=== PATIENT | male | born 1945 | race Caucasian/White ===

== ENCOUNTER 2022-07-27 03:23 | Inpatient (IN) | payer BC, MEDICARE ==
[~2022-07-27] VITALS: Ht 177.8 cm; Wt 72.3 kg
[2022-07-27] MEDS ORDERED: ONDANSETRON 4MG 2ML VIAL IV ONE (04:00)
[2022-07-27] MEDS: MORPHINE 4 MG/ML 1ML VIAL IV PRN ×2 (04:13→04:51)
[2022-07-27 04:48] LABS: BASO % 0.3 % (0.0-1.0); EOS % 0.5 % (0.0-3.0); HEMATOCRIT 37.3 % (42.0-52.0); HEMOGLOBIN 12.2 g/dl (13.5-17.5); LYMPH # 0.6 10^3/uL (1.5-5.0); LYMPH % 10.4 % (24.0-44.0); MEAN CORPUSCULAR HEMOGLOBIN 33.5 pg (27.0-33.0); MEAN CORPUSCULAR HGB CONC 32.7 g/dl (32.0-36.5); MEAN CORPUSCULAR VOLUME 102.5 fl (80.0-96.0); MONO # 0.5 10^3/uL (0.0-0.8); MONO % 8.1 % (2.0-8.0); NEUTROPHILS # 4.6 10^3/uL (1.5-8.5); PLATELET COUNT, AUTOMATED 170 10^3/uL (150-450); RED BLOOD COUNT 3.64 10^6/uL (4.30-6.10); WHITE BLOOD COUNT 5.8 10^3/uL (4.0-10.0)
[2022-07-27 04:58] LABS: INR 1.36
[2022-07-27 04:59] LABS: PARTIAL THROMBOPLASTIN TIME 35.1 SECONDS (24.8-34.2)
[2022-07-27 05:09] LABS: BLOOD UREA NITROGEN 31 MG/DL (9-23); CALCIUM LEVEL 8.7 MG/DL (8.3-10.6); CARBON DIOXIDE LEVEL 31 MMOL/L (20-31); CHLORIDE LEVEL 103 MMOL/L (98-107); CREATININE FOR GFR 0.93 MG/DL (0.70-1.30); GLOMERULAR FILTRATION RATE > 60.0 (>42); GLUCOSE, FASTING 269 MG/DL (74-106); POTASSIUM SERUM 4.1 MMOL/L (3.5-5.1); SODIUM LEVEL 140 MMOL/L (136-145)
[2022-07-27] MEDS ORDERED: FURO20TA2 PO (05:26)
[2022-07-27] MEDS ORDERED: BUPR150T12 PO (05:26)
[2022-07-27] MEDS ORDERED: ELIQ5TAB PO (05:26)
[2022-07-27] MEDS ORDERED: ASPI81TA26 PO (05:26)
[2022-07-27] MEDS ORDERED: LEXA1TAB PO (05:26)
[2022-07-27] MEDS ORDERED: CARV6.25 PO (05:26)
[2022-07-27] MEDS ORDERED: TAMS1CAP17 PO (05:26)
[2022-07-27] MEDS ORDERED: SPIR-10 PO (05:26)
[2022-07-27] MEDS ORDERED: METF500T13 PO (05:26)
[2022-07-27] MEDS ORDERED: MAGN400T2 PO (05:30)
[2022-07-27] MEDS ORDERED: ATOR1TAB21 PO (05:30)
[2022-07-27] MEDS ORDERED: VITA100054 PO (05:30)
[2022-07-27] MEDS ORDERED: THERTAB52 PO (05:30)
[2022-07-27] MEDS ORDERED: FERR1TAB8 PO (05:30)
[2022-07-27] MEDS ORDERED: VITA30005 SL (05:30)
[2022-07-27] MEDS ORDERED: AMIO200T49 PO (05:32)
[2022-07-27] MEDS ORDERED: HOME MED LIST COMPLETE! XX SCH (05:35)
[2022-07-27] MEDS ORDERED: MORPHINE 4 MG/ML 1ML VIAL IV ONE (06:30)
[2022-07-27] MEDS ORDERED: GLUCAGON INJ 1MG VIAL SC PRN (06:45)
[2022-07-27] MEDS ORDERED: DEXTROSE 50% 50ML SYRINGE IV PRN (06:45)
[2022-07-27] MEDS ORDERED: GLUCOSE 4GM CHEW TABLET PO PRN (06:45)
[2022-07-27] MEDS: INSULIN LISPRO (NovoLOG) PER UNIT SC SCH ×4 (07:30→20:53)
[2022-07-27] MEDS ORDERED: ASPIRIN 81MG CHEW TABLET PO ONE (08:00)
[2022-07-27 09:16] VITALS: BP 155/75
[2022-07-27] MEDS: NS 1,000 ML IV SCH ×2 (10:21→17:08)
[2022-07-27] MEDS: TAMSULOSIN 0.4 MG CAP PO SCH (10:22)
[2022-07-27] MEDS: CARVedilol 6.25 MG TAB PO SCH ×2 (10:22→20:34)
[2022-07-27] MEDS: AMIODARONE 200 MG TAB (PACERONE) PO SCH (10:22)
[2022-07-27] MEDS: ESCITALOPRAM OXALATE 10 MG TAB (LEXAPRO) PO SCH (10:23)
[2022-07-27] MEDS: FUROSEMIDE 20 MG TAB PO SCH (10:23)
[2022-07-27] MEDS: buPROPion **XL** TABLET 150MG (WELLBUTRIN XL) PO SCH (10:23)
[2022-07-27] MEDS: SPIRONOLACTONE 12.5MG PER 1/2 TABLET PO SCH (10:31)
[2022-07-27] MEDS: MORPHINE 2 MG/ML 1ML VIAL IV PRN ×3 (12:06→21:24)
[2022-07-27] MEDS ORDERED: ONDANSETRON 4MG 2ML VIAL IV PRN (14:00)
[2022-07-27] MEDS: HEPARIN SOD (PORCINE) 5000UNITS/ML 1ML VIAL/SYRINGE SC SCH ×2 (14:30→21:20)
[2022-07-27 18:18] VITALS: BP 125/57
[2022-07-27] MEDS ORDERED: PILL CUTTER 1 EACH XX PRN (19:00)
[2022-07-27] MEDS: ATORVASTATIN 20 MG TAB PO SCH (20:27)
[2022-07-27] MEDS: DAPAGLIFLOZIN PROPANEDIOL 10MG TABLET (FARXIGA) PO SCH (20:28)
[2022-07-27 20:48] VITALS: BP 167/74
[2022-07-27 21:31] VITALS: BP 146/61
[2022-07-28] MEDS: MORPHINE 2 MG/ML 1ML VIAL IV PRN ×5 (01:43→23:36)
[2022-07-28] MEDS: HEPARIN SOD (PORCINE) 5000UNITS/ML 1ML VIAL/SYRINGE SC SCH ×3 (05:18→21:22)
[2022-07-28 06:00] VITALS: BP 117/57
[2022-07-28 07:11] LABS: HEMATOCRIT 31.3 % (42.0-52.0); MEAN CORPUSCULAR HGB CONC 31.9 g/dl (32.0-36.5); MEAN CORPUSCULAR VOLUME 103.3 fl (80.0-96.0); PLATELET COUNT, AUTOMATED 130 10^3/uL (150-450); RED BLOOD COUNT 3.03 10^6/uL (4.30-6.10); WHITE BLOOD COUNT 4.6 10^3/uL (4.0-10.0)
[2022-07-28 07:35] LABS: ALBUMIN 3.1 G/DL (3.2-5.2); ALKALINE PHOSPHATASE 55 U/L (46-116); ALT/SGPT 20 U/L (7.0-40); AST/SGOT 19 U/L (<34); BILIRUBIN,TOTAL 0.8 MG/DL (0.3-1.2); BLOOD UREA NITROGEN 30 MG/DL (9-23); CALCIUM LEVEL 8.2 MG/DL (8.3-10.6); CARBON DIOXIDE LEVEL 27 MMOL/L (20-31); CHLORIDE LEVEL 104 MMOL/L (98-107); CREATININE FOR GFR 0.95 MG/DL (0.70-1.30); GLOMERULAR FILTRATION RATE > 60.0 (>42); GLUCOSE, FASTING 188 MG/DL (74-106); MAGNESIUM LEVEL 1.7 MG/DL (1.8-2.4); POTASSIUM SERUM 4.2 MMOL/L (3.5-5.1); SODIUM LEVEL 140 MMOL/L (136-145); TOTAL PROTEIN 5.3 G/DL (5.7-8.2)
[2022-07-28] MEDS: INSULIN LISPRO (NovoLOG) PER UNIT SC SCH ×4 (08:57→21:00)
[2022-07-28] MEDS: DAPAGLIFLOZIN PROPANEDIOL 10MG TABLET (FARXIGA) PO SCH (08:57)
[2022-07-28] MEDS: FUROSEMIDE 20 MG TAB PO SCH (08:57)
[2022-07-28] MEDS: SPIRONOLACTONE 12.5MG PER 1/2 TABLET PO SCH (08:57)
[2022-07-28] MEDS: AMIODARONE 200 MG TAB (PACERONE) PO SCH (08:58)
[2022-07-28] MEDS: ESCITALOPRAM OXALATE 10 MG TAB (LEXAPRO) PO SCH (08:58)
[2022-07-28] MEDS: buPROPion **XL** TABLET 150MG (WELLBUTRIN XL) PO SCH (08:58)
[2022-07-28] MEDS: CARVedilol 6.25 MG TAB PO SCH ×2 (08:58→21:22)
[2022-07-28] MEDS: TAMSULOSIN 0.4 MG CAP PO SCH (08:58)
[2022-07-28 10:00] VITALS: BP 117/55
[2022-07-28 14:00] VITALS: BP 137/54
[2022-07-28 21:00] VITALS: BP 137/55
[2022-07-28] MEDS: ATORVASTATIN 20 MG TAB PO SCH (21:19)
[2022-07-29] VITALS (9 sets, daily range): BP systolic 102–150; BP diastolic 46–58
[2022-07-29] MEDS: MORPHINE 2 MG/ML 1ML VIAL IV PRN ×4 (03:45→22:41)
[2022-07-29] MEDS: HEPARIN SOD (PORCINE) 5000UNITS/ML 1ML VIAL/SYRINGE SC SCH ×3 (05:23→21:08)
[2022-07-29 06:14] LABS: HEMATOCRIT 30.8 % (42.0-52.0); HEMOGLOBIN 9.9 g/dl (13.5-17.5); MEAN CORPUSCULAR HEMOGLOBIN 32.8 pg (27.0-33.0); MEAN CORPUSCULAR HGB CONC 32.1 g/dl (32.0-36.5); PLATELET COUNT, AUTOMATED 125 10^3/uL (150-450); RED BLOOD COUNT 3.02 10^6/uL (4.30-6.10); WHITE BLOOD COUNT 4.8 10^3/uL (4.0-10.0)
[2022-07-29 06:35] LABS: BLOOD UREA NITROGEN 29 MG/DL (9-23); CALCIUM LEVEL 7.9 MG/DL (8.3-10.6); CARBON DIOXIDE LEVEL 27 MMOL/L (20-31); CHLORIDE LEVEL 100 MMOL/L (98-107); CREATININE FOR GFR 0.98 MG/DL (0.70-1.30); GLOMERULAR FILTRATION RATE > 60.0 (>42); GLUCOSE, FASTING 151 MG/DL (74-106); POTASSIUM SERUM 4.1 MMOL/L (3.5-5.1); SODIUM LEVEL 138 MMOL/L (136-145)
[2022-07-29] MEDS: INSULIN LISPRO (NovoLOG) PER UNIT SC SCH ×4 (07:30→21:00)
[2022-07-29] MEDS: CARVedilol 6.25 MG TAB PO SCH ×2 (09:00→21:00)
[2022-07-29] MEDS ORDERED: LIDOCAINE 2% 100MG/5ML SDV (FOR ANES.) As Ordered ONE (09:27)
[2022-07-29] MEDS ORDERED: MIDAZOLAM INJ 2MG/2ML VIAL As Ordered ONE (09:27)
[2022-07-29] MEDS ORDERED: propofoL 200 MG/20 ML VIAL As Ordered ONE ×2 (09:27→12:07)
[2022-07-29] MEDS ORDERED: fentaNYL 100 MCG/2 ML INJECTION As Ordered ONE (09:27)
[2022-07-29] MEDS ORDERED: ceFAZolin 1GM VIAL As Ordered ONE (09:41)
[2022-07-29] MEDS ORDERED: BUPIVACAINE HCL 0.5% 30ML VIAL As Ordered ONE (09:46)
[2022-07-29] MEDS ORDERED: BUPIVACAINE/EPIN 0.5% 30ML VIAL ONE (09:46)
[2022-07-29] MEDS ORDERED: ceFAZolin 2 GM/D5W 50 ML IV BAG As Ordered ONE (09:46)
[2022-07-29] MEDS ORDERED: TRANEXAMIC ACID 100 MG/ML 10ML VIAL As Ordered ONE (09:46)
[2022-07-29] MEDS ORDERED: VASOPRESSIN INJ 20UNITS/ML 1ML VIAL As Ordered ONE (09:54)
[2022-07-29] MEDS ORDERED: ROCURONIUM BROMIDE 50MG/5ML VIAL As Ordered ONE (10:54)
[2022-07-29] MEDS ORDERED: BUPIVACAINE/EPIN 0.5% 30ML VIAL As Ordered ONE (11:01)
[2022-07-29] MEDS ORDERED: ACETAMINOPHEN 1000MG 100ML IV BAG As Ordered ONE (11:03)
[2022-07-29] MEDS ORDERED: LR 1,000 ML IV SCH (12:35)
[2022-07-29] MEDS ORDERED: MORPHINE 2 MG/ML 1ML VIAL IV PRN (12:35)
[2022-07-29] MEDS ORDERED: fentaNYL 100 MCG/2 ML INJECTION IV PRN (12:35)
[2022-07-29] MEDS ORDERED: ONDANSETRON 4MG 2ML VIAL IV PRN (12:35)
[2022-07-29] MEDS ORDERED: oxyCODONE 5MG TAB PO PRN (12:35)
[2022-07-29] MEDS: SPIRONOLACTONE 12.5MG PER 1/2 TABLET PO SCH (16:01)
[2022-07-29] MEDS: DAPAGLIFLOZIN PROPANEDIOL 10MG TABLET (FARXIGA) PO SCH (16:02)
[2022-07-29] MEDS: FUROSEMIDE 20 MG TAB PO SCH (16:02)
[2022-07-29] MEDS: TAMSULOSIN 0.4 MG CAP PO SCH (16:02)
[2022-07-29] MEDS: buPROPion **XL** TABLET 150MG (WELLBUTRIN XL) PO SCH (16:03)
[2022-07-29] MEDS: ESCITALOPRAM OXALATE 10 MG TAB (LEXAPRO) PO SCH (16:03)
[2022-07-29] MEDS: AMIODARONE 200 MG TAB (PACERONE) PO SCH (16:03)
[2022-07-29] MEDS: ceFAZolin SOD 1 GM in D5W MINI-BAG PLUS 50 ML IV SCH (18:01)
[2022-07-29] MEDS: ATORVASTATIN 20 MG TAB PO SCH (21:07)
[2022-07-29] MEDS: ACETAMINOPHEN TAB 650MG DOSE (2X325MG) PO PRN (21:09)
[2022-07-30] MEDS: ceFAZolin SOD 1 GM in D5W MINI-BAG PLUS 50 ML IV SCH ×2 (02:38→09:07)
[2022-07-30 03:00] VITALS: BP 139/56
[2022-07-30] MEDS ORDERED: IBUPROFEN 400MG TAB PO ONE (03:00)
[2022-07-30] MEDS: ACETAMINOPHEN TAB 650MG DOSE (2X325MG) PO PRN (06:11)
[2022-07-30 06:20] LABS: HEMOGLOBIN 10.1 g/dl (13.5-17.5); MEAN CORPUSCULAR HEMOGLOBIN 33.3 pg (27.0-33.0); MEAN CORPUSCULAR HGB CONC 32.6 g/dl (32.0-36.5); MEAN CORPUSCULAR VOLUME 102.3 fl (80.0-96.0); PLATELET COUNT, AUTOMATED 126 10^3/uL (150-450); RED BLOOD COUNT 3.03 10^6/uL (4.30-6.10); WHITE BLOOD COUNT 4.3 10^3/uL (4.0-10.0)
[2022-07-30] MEDS: HEPARIN SOD (PORCINE) 5000UNITS/ML 1ML VIAL/SYRINGE SC SCH (06:39)
[2022-07-30 06:50] LABS: BLOOD UREA NITROGEN 32 MG/DL (9-23); CALCIUM LEVEL 8.1 MG/DL (8.3-10.6); CARBON DIOXIDE LEVEL 30 MMOL/L (20-31); CHLORIDE LEVEL 100 MMOL/L (98-107); CREATININE FOR GFR 0.92 MG/DL (0.70-1.30); GLOMERULAR FILTRATION RATE > 60.0 (>42); GLUCOSE, FASTING 178 MG/DL (74-106); POTASSIUM SERUM 4.2 MMOL/L (3.5-5.1); SODIUM LEVEL 137 MMOL/L (136-145)
[2022-07-30] MEDS: CARVedilol 6.25 MG TAB PO SCH ×2 (09:00→21:00)
[2022-07-30] MEDS: INSULIN LISPRO (NovoLOG) PER UNIT SC SCH ×4 (09:05→21:24)
[2022-07-30] MEDS: DAPAGLIFLOZIN PROPANEDIOL 10MG TABLET (FARXIGA) PO SCH (09:06)
[2022-07-30] MEDS: FUROSEMIDE 20 MG TAB PO SCH (09:06)
[2022-07-30] MEDS: AMIODARONE 200 MG TAB (PACERONE) PO SCH (09:06)
[2022-07-30] MEDS: ESCITALOPRAM OXALATE 10 MG TAB (LEXAPRO) PO SCH (09:06)
[2022-07-30] MEDS: TAMSULOSIN 0.4 MG CAP PO SCH (09:07)
[2022-07-30] MEDS: buPROPion **XL** TABLET 150MG (WELLBUTRIN XL) PO SCH (09:07)
[2022-07-30] MEDS: SPIRONOLACTONE 12.5MG PER 1/2 TABLET PO SCH (09:17)
[2022-07-30] MEDS: MORPHINE 2 MG/ML 1ML VIAL IV PRN (10:01)
[2022-07-30] MEDS ORDERED: CYCLOBENZAPRINE 10MG TABLET PO PRN (10:45)
[2022-07-30 14:00] VITALS: BP 103/85
[2022-07-30] MEDS: FERROUS SULFATE 325MG TAB PO SCH (14:56)
[2022-07-30] MEDS: oxyCODONE 5MG TAB PO PRN ×2 (14:56→21:25)
[2022-07-30] MEDS: LIDOCAINE 5% (LIDODERM) PATCH TD SCH (15:00)
[2022-07-30] MEDS: DICLOFENAC EPOLAMINE 1.3% PATCH TOP SCH ×2 (15:01→21:26)
[2022-07-30 15:08] LABS: IRON (FE) 10 UG/DL (65-175); PERCENT SATURATION 4.4 % (19.7-50.0); TOTAL IRON BINDING CAPACITY 225 UG/DL (250-425)
[2022-07-30 15:10] LABS: FERRITIN 102.4 NG/ML (10.5-307.3); FOLATE 21.37 NG/ML (>5.4)
[2022-07-30 15:12] LABS: VITAMIN B12 LEVEL > 2000 PG/ML (211-911)
[2022-07-30] MEDS ORDERED: FERRIC CARBOXYMALTOSE INJ 750 MG, VIAL MATE ADAPTER 1 EACH in NS 250 ML IV ONE (18:00)
[2022-07-30] MEDS: ACETAMINOPHEN 500 MG TAB PO SCH (18:53)
[2022-07-30] MEDS: APIXABAN 5 MG TAB (ELIQUIS) PO SCH (21:24)
[2022-07-30] MEDS: ATORVASTATIN 20 MG TAB PO SCH (21:25)
[2022-07-30 22:00] VITALS: BP_SYST 138; BP_DIAS 56; BP_DIAS 57
[2022-07-31] MEDS: ACETAMINOPHEN 500 MG TAB PO SCH ×5 (01:25→23:26)
[2022-07-31 05:58] LABS: HEMATOCRIT 27.5 % (42.0-52.0); HEMOGLOBIN 9.1 g/dl (13.5-17.5); MEAN CORPUSCULAR HEMOGLOBIN 33.5 pg (27.0-33.0); MEAN CORPUSCULAR HGB CONC 33.1 g/dl (32.0-36.5); MEAN CORPUSCULAR VOLUME 101.1 fl (80.0-96.0); PLATELET COUNT, AUTOMATED 135 10^3/uL (150-450); RED BLOOD COUNT 2.72 10^6/uL (4.30-6.10)
[2022-07-31 06:00] VITALS: BP 143/54
[2022-07-31 06:14] LABS: BLOOD UREA NITROGEN 29 MG/DL (9-23); CALCIUM LEVEL 8.1 MG/DL (8.3-10.6); CARBON DIOXIDE LEVEL 31 MMOL/L (20-31); CHLORIDE LEVEL 103 MMOL/L (98-107); CREATININE FOR GFR 0.86 MG/DL (0.70-1.30); GLOMERULAR FILTRATION RATE > 60.0 (>42); GLUCOSE, FASTING 179 MG/DL (74-106); POTASSIUM SERUM 3.6 MMOL/L (3.5-5.1); SODIUM LEVEL 140 MMOL/L (136-145)
[2022-07-31] MEDS: INSULIN LISPRO (NovoLOG) PER UNIT SC SCH ×4 (08:01→20:17)
[2022-07-31 08:10] VITALS: BP 163/57
[2022-07-31] MEDS: oxyCODONE 5MG TAB PO PRN ×2 (08:57→13:19)
[2022-07-31] MEDS: CARVedilol 6.25 MG TAB PO SCH ×2 (09:00→20:24)
[2022-07-31] MEDS: LIDOCAINE 5% (LIDODERM) PATCH TD SCH (10:23)
[2022-07-31] MEDS: DICLOFENAC EPOLAMINE 1.3% PATCH TOP SCH ×2 (10:23→20:23)
[2022-07-31] MEDS: SPIRONOLACTONE 12.5MG PER 1/2 TABLET PO SCH (10:24)
[2022-07-31] MEDS: FUROSEMIDE 20 MG TAB PO SCH (10:24)
[2022-07-31] MEDS: buPROPion **XL** TABLET 150MG (WELLBUTRIN XL) PO SCH (10:24)
[2022-07-31] MEDS: DAPAGLIFLOZIN PROPANEDIOL 10MG TABLET (FARXIGA) PO SCH (10:24)
[2022-07-31] MEDS: TAMSULOSIN 0.4 MG CAP PO SCH (10:24)
[2022-07-31] MEDS: FERROUS SULFATE 325MG TAB PO SCH (10:24)
[2022-07-31] MEDS: ESCITALOPRAM OXALATE 10 MG TAB (LEXAPRO) PO SCH (10:24)
[2022-07-31] MEDS: ASPIRIN 81MG ENTERIC TABLET PO SCH (10:24)
[2022-07-31] MEDS: APIXABAN 5 MG TAB (ELIQUIS) PO SCH ×2 (10:25→20:23)
[2022-07-31 11:00] VITALS: BP 164/62
[2022-07-31] MEDS: AMIODARONE 200 MG TAB (PACERONE) PO SCH (12:04)
[2022-07-31] MEDS: METAMUCIL (PSYLLIUM) PACKET PO SCH (17:42)
[2022-07-31] MEDS: MIRALAX *UNIT DOSE* 17GM PACKET PO SCH (17:42)
[2022-07-31] MEDS: ATORVASTATIN 20 MG TAB PO SCH (20:23)
[2022-08-01] MEDS: ACETAMINOPHEN 500 MG TAB PO SCH ×3 (05:26→18:12)
[2022-08-01 05:44] VITALS: BP 147/60
[2022-08-01 06:32] LABS: HEMATOCRIT 27.5 % (42.0-52.0); MEAN CORPUSCULAR HEMOGLOBIN 33.2 pg (27.0-33.0); MEAN CORPUSCULAR HGB CONC 32.7 g/dl (32.0-36.5); MEAN CORPUSCULAR VOLUME 101.5 fl (80.0-96.0); PLATELET COUNT, AUTOMATED 147 10^3/uL (150-450); RED BLOOD COUNT 2.71 10^6/uL (4.30-6.10)
[2022-08-01 06:56] LABS: BLOOD UREA NITROGEN 24 MG/DL (9-23); CALCIUM LEVEL 8.2 MG/DL (8.3-10.6); CARBON DIOXIDE LEVEL 32 MMOL/L (20-31); CHLORIDE LEVEL 102 MMOL/L (98-107); CREATININE FOR GFR 0.71 MG/DL (0.70-1.30); GLOMERULAR FILTRATION RATE > 60.0 (>42); GLUCOSE, FASTING 182 MG/DL (74-106); POTASSIUM SERUM 3.2 MMOL/L (3.5-5.1); SODIUM LEVEL 141 MMOL/L (136-145)
[2022-08-01] MEDS: LIDOCAINE 5% (LIDODERM) PATCH TD SCH ×2 (09:46→21:03)
[2022-08-01] MEDS: METAMUCIL (PSYLLIUM) PACKET PO SCH (09:46)
[2022-08-01] MEDS: DICLOFENAC EPOLAMINE 1.3% PATCH TOP SCH ×2 (09:46→21:03)
[2022-08-01] MEDS: MIRALAX *UNIT DOSE* 17GM PACKET PO SCH (09:46)
[2022-08-01] MEDS: oxyCODONE 5MG TAB PO PRN ×3 (09:46→21:12)
[2022-08-01] MEDS: ASPIRIN 81MG ENTERIC TABLET PO SCH (09:47)
[2022-08-01] MEDS: buPROPion **XL** TABLET 150MG (WELLBUTRIN XL) PO SCH (09:47)
[2022-08-01] MEDS: DAPAGLIFLOZIN PROPANEDIOL 10MG TABLET (FARXIGA) PO SCH (09:47)
[2022-08-01] MEDS: SPIRONOLACTONE 12.5MG PER 1/2 TABLET PO SCH (09:47)
[2022-08-01] MEDS: FUROSEMIDE 20 MG TAB PO SCH (09:48)
[2022-08-01] MEDS: ESCITALOPRAM OXALATE 10 MG TAB (LEXAPRO) PO SCH (09:48)
[2022-08-01] MEDS: APIXABAN 5 MG TAB (ELIQUIS) PO SCH ×2 (09:48→21:01)
[2022-08-01] MEDS: FERROUS SULFATE 325MG TAB PO SCH (09:48)
[2022-08-01] MEDS: AMIODARONE 200 MG TAB (PACERONE) PO SCH (09:48)
[2022-08-01] MEDS: TAMSULOSIN 0.4 MG CAP PO SCH (09:48)
[2022-08-01] MEDS: INSULIN LISPRO (NovoLOG) PER UNIT SC SCH ×4 (09:49→21:00)
[2022-08-01] MEDS: CARVedilol 6.25 MG TAB PO SCH ×2 (09:54→21:00)
[2022-08-01] MEDS: POTASSIUM CHLORIDE 10MEQ SR TABLET PO SCH ×2 (11:33→21:01)
[2022-08-01] MEDS: ATORVASTATIN 20 MG TAB PO SCH (21:02)
[2022-08-02] MEDS: ACETAMINOPHEN 500 MG TAB PO SCH ×5 (00:08→23:07)
[2022-08-02 06:00] VITALS: BP 124/58
[2022-08-02 07:19] LABS: HEMATOCRIT 28.8 % (42.0-52.0); HEMOGLOBIN 9.3 g/dl (13.5-17.5); MEAN CORPUSCULAR HGB CONC 32.3 g/dl (32.0-36.5); MEAN CORPUSCULAR VOLUME 102.1 fl (80.0-96.0); PLATELET COUNT, AUTOMATED 188 10^3/uL (150-450); RED BLOOD COUNT 2.82 10^6/uL (4.30-6.10); WHITE BLOOD COUNT 3.5 10^3/uL (4.0-10.0)
[2022-08-02 07:47] LABS: BLOOD UREA NITROGEN 23 MG/DL (9-23); CALCIUM LEVEL 8.1 MG/DL (8.3-10.6); CARBON DIOXIDE LEVEL 33 MMOL/L (20-31); CHLORIDE LEVEL 106 MMOL/L (98-107); CREATININE FOR GFR 0.66 MG/DL (0.70-1.30); GLOMERULAR FILTRATION RATE > 60.0 (>42); GLUCOSE, FASTING 198 MG/DL (74-106); POTASSIUM SERUM 4.2 MMOL/L (3.5-5.1); SODIUM LEVEL 140 MMOL/L (136-145)
[2022-08-02] MEDS: INSULIN LISPRO (NovoLOG) PER UNIT SC SCH ×5 (08:54→20:26)
[2022-08-02] MEDS: AMIODARONE 200 MG TAB (PACERONE) PO SCH (08:56)
[2022-08-02] MEDS: FERROUS SULFATE 325MG TAB PO SCH (08:56)
[2022-08-02] MEDS: APIXABAN 5 MG TAB (ELIQUIS) PO SCH ×2 (08:56→20:19)
[2022-08-02] MEDS: CARVedilol 6.25 MG TAB PO SCH ×2 (08:57→20:19)
[2022-08-02] MEDS: POTASSIUM CHLORIDE 10MEQ SR TABLET PO SCH ×2 (08:57→20:19)
[2022-08-02] MEDS: METAMUCIL (PSYLLIUM) PACKET PO SCH (08:58)
[2022-08-02] MEDS: buPROPion **XL** TABLET 150MG (WELLBUTRIN XL) PO SCH (08:58)
[2022-08-02] MEDS: MIRALAX *UNIT DOSE* 17GM PACKET PO SCH (08:58)
[2022-08-02] MEDS: ASPIRIN 81MG ENTERIC TABLET PO SCH (08:59)
[2022-08-02] MEDS: ESCITALOPRAM OXALATE 10 MG TAB (LEXAPRO) PO SCH (08:59)
[2022-08-02] MEDS: DICLOFENAC EPOLAMINE 1.3% PATCH TOP SCH ×2 (08:59→20:20)
[2022-08-02] MEDS: TAMSULOSIN 0.4 MG CAP PO SCH (08:59)
[2022-08-02] MEDS: FUROSEMIDE 20 MG TAB PO SCH (08:59)
[2022-08-02] MEDS: SPIRONOLACTONE 12.5MG PER 1/2 TABLET PO SCH (09:13)
[2022-08-02] MEDS: DAPAGLIFLOZIN PROPANEDIOL 10MG TABLET (FARXIGA) PO SCH (12:39)
[2022-08-02] MEDS: oxyCODONE 5MG TAB PO PRN ×2 (13:56→20:18)
[2022-08-02] MEDS: ATORVASTATIN 20 MG TAB PO SCH (20:19)
[2022-08-02] MEDS: MORPHINE 4 MG/ML 1ML VIAL IV PRN (23:40)
[2022-08-03] MEDS: MORPHINE 4 MG/ML 1ML VIAL IV PRN ×2 (03:54→08:49)
[2022-08-03] MEDS: ACETAMINOPHEN 500 MG TAB PO SCH ×4 (05:31→23:28)
[2022-08-03 06:00] VITALS: BP_SYST 142; BP_SYST 162; BP_DIAS 68; BP_DIAS 70
[2022-08-03 06:06] LABS: HEMATOCRIT 28.2 % (42.0-52.0); HEMOGLOBIN 9.1 g/dl (13.5-17.5); MEAN CORPUSCULAR HEMOGLOBIN 33.2 pg (27.0-33.0); MEAN CORPUSCULAR HGB CONC 32.3 g/dl (32.0-36.5); MEAN CORPUSCULAR VOLUME 102.9 fl (80.0-96.0); PLATELET COUNT, AUTOMATED 199 10^3/uL (150-450); RED BLOOD COUNT 2.74 10^6/uL (4.30-6.10)
[2022-08-03] MEDS: oxyCODONE 5MG TAB PO PRN ×3 (06:13→21:32)
[2022-08-03 06:28] LABS: BLOOD UREA NITROGEN 23 MG/DL (9-23); CARBON DIOXIDE LEVEL 30 MMOL/L (20-31); CHLORIDE LEVEL 101 MMOL/L (98-107); CREATININE FOR GFR 0.75 MG/DL (0.70-1.30); GLOMERULAR FILTRATION RATE > 60.0 (>42); GLUCOSE, FASTING 218 MG/DL (74-106); POTASSIUM SERUM 4.8 MMOL/L (3.5-5.1); SODIUM LEVEL 137 MMOL/L (136-145)
[2022-08-03] MEDS: FUROSEMIDE 20 MG TAB PO SCH (08:30)
[2022-08-03] MEDS: ASPIRIN 81MG ENTERIC TABLET PO SCH (08:30)
[2022-08-03] MEDS: TAMSULOSIN 0.4 MG CAP PO SCH (08:31)
[2022-08-03] MEDS: POTASSIUM CHLORIDE 10MEQ SR TABLET PO SCH (08:31)
[2022-08-03] MEDS: SPIRONOLACTONE 12.5MG PER 1/2 TABLET PO SCH (08:31)
[2022-08-03] MEDS: CARVedilol 6.25 MG TAB PO SCH ×2 (08:32→21:19)
[2022-08-03] MEDS: FERROUS SULFATE 325MG TAB PO SCH (08:32)
[2022-08-03] MEDS: APIXABAN 5 MG TAB (ELIQUIS) PO SCH ×2 (08:33→21:18)
[2022-08-03] MEDS: buPROPion **XL** TABLET 150MG (WELLBUTRIN XL) PO SCH (08:33)
[2022-08-03] MEDS: ESCITALOPRAM OXALATE 10 MG TAB (LEXAPRO) PO SCH (08:33)
[2022-08-03] MEDS: DAPAGLIFLOZIN PROPANEDIOL 10MG TABLET (FARXIGA) PO SCH (08:33)
[2022-08-03] MEDS: AMIODARONE 200 MG TAB (PACERONE) PO SCH (08:33)
[2022-08-03] MEDS: INSULIN LISPRO (NovoLOG) PER UNIT SC SCH ×4 (08:34→21:00)
[2022-08-03] MEDS: METAMUCIL (PSYLLIUM) PACKET PO SCH (08:35)
[2022-08-03] MEDS: LIDOCAINE 5% (LIDODERM) PATCH TD SCH (08:35)
[2022-08-03] MEDS: DICLOFENAC EPOLAMINE 1.3% PATCH TOP SCH ×2 (08:35→21:21)
[2022-08-03] MEDS: MIRALAX *UNIT DOSE* 17GM PACKET PO SCH (08:35)
[2022-08-03] MEDS: ATORVASTATIN 20 MG TAB PO SCH (21:18)
[2022-08-04] MEDS: ACETAMINOPHEN 500 MG TAB PO SCH ×3 (05:44→18:11)
[2022-08-04 06:00] VITALS: BP 131/58
[2022-08-04 06:03] LABS: HEMATOCRIT 30.7 % (42.0-52.0); HEMOGLOBIN 9.8 g/dl (13.5-17.5); MEAN CORPUSCULAR HEMOGLOBIN 32.9 pg (27.0-33.0); MEAN CORPUSCULAR HGB CONC 31.9 g/dl (32.0-36.5); PLATELET COUNT, AUTOMATED 224 10^3/uL (150-450); RED BLOOD COUNT 2.98 10^6/uL (4.30-6.10); WHITE BLOOD COUNT 3.8 10^3/uL (4.0-10.0)
[2022-08-04 06:31] LABS: BLOOD UREA NITROGEN 24 MG/DL (9-23); CALCIUM LEVEL 7.6 MG/DL (8.3-10.6); CARBON DIOXIDE LEVEL 31 MMOL/L (20-31); CHLORIDE LEVEL 101 MMOL/L (98-107); CREATININE FOR GFR 0.74 MG/DL (0.70-1.30); GLOMERULAR FILTRATION RATE > 60.0 (>42); GLUCOSE, FASTING 195 MG/DL (74-106); POTASSIUM SERUM 4.9 MMOL/L (3.5-5.1); SODIUM LEVEL 137 MMOL/L (136-145)
[2022-08-04] MEDS: ASPIRIN 81MG ENTERIC TABLET PO SCH (08:30)
[2022-08-04] MEDS: AMIODARONE 200 MG TAB (PACERONE) PO SCH (08:31)
[2022-08-04] MEDS: TAMSULOSIN 0.4 MG CAP PO SCH (08:31)
[2022-08-04] MEDS: FUROSEMIDE 20 MG TAB PO SCH (08:31)
[2022-08-04] MEDS: DAPAGLIFLOZIN PROPANEDIOL 10MG TABLET (FARXIGA) PO SCH (08:31)
[2022-08-04] MEDS: FERROUS SULFATE 325MG TAB PO SCH (08:32)
[2022-08-04] MEDS: ESCITALOPRAM OXALATE 10 MG TAB (LEXAPRO) PO SCH (08:32)
[2022-08-04] MEDS: CARVedilol 6.25 MG TAB PO SCH ×2 (08:34→20:15)
[2022-08-04] MEDS: buPROPion **XL** TABLET 150MG (WELLBUTRIN XL) PO SCH (08:34)
[2022-08-04] MEDS: APIXABAN 5 MG TAB (ELIQUIS) PO SCH ×2 (08:34→20:14)
[2022-08-04] MEDS: INSULIN LISPRO (NovoLOG) PER UNIT SC SCH ×4 (08:35→21:00)
[2022-08-04] MEDS: LIDOCAINE 5% (LIDODERM) PATCH TD SCH (08:35)
[2022-08-04] MEDS: DICLOFENAC EPOLAMINE 1.3% PATCH TOP SCH ×2 (08:36→20:17)
[2022-08-04] MEDS: SPIRONOLACTONE 12.5MG PER 1/2 TABLET PO SCH (08:42)
[2022-08-04] MEDS: oxyCODONE 5MG TAB PO PRN ×2 (08:43→20:16)
[2022-08-04] MEDS: METAMUCIL (PSYLLIUM) PACKET PO SCH (08:44)
[2022-08-04] MEDS: MIRALAX *UNIT DOSE* 17GM PACKET PO SCH (08:44)
[2022-08-04] MEDS ORDERED: MIRA1POW3 PO (16:01)
[2022-08-04] MEDS ORDERED: DICL1PAT6 TOP (16:01)
[2022-08-04] MEDS ORDERED: FARX1TAB3 PO (16:01)
[2022-08-04] MEDS ORDERED: OXYC-517 PO (16:01)
[2022-08-04] MEDS ORDERED: LIDO5TD TD (16:01)
[2022-08-04 20:15] VITALS: BP 144/96
[2022-08-04] MEDS: ATORVASTATIN 20 MG TAB PO SCH (20:15)
[2022-08-05] MEDS: ACETAMINOPHEN 500 MG TAB PO SCH ×3 (00:39→12:32)
[2022-08-05 06:56] VITALS: BP 146/80
[2022-08-05 08:00] VITALS: BP 148/76
[2022-08-05] MEDS: MIRALAX *UNIT DOSE* 17GM PACKET PO SCH ×2 (09:00→09:07)
[2022-08-05] MEDS: METAMUCIL (PSYLLIUM) PACKET PO SCH ×2 (09:00→09:07)
[2022-08-05] MEDS: CARVedilol 6.25 MG TAB PO SCH (09:00)
[2022-08-05] MEDS: INSULIN LISPRO (NovoLOG) PER UNIT SC SCH ×2 (09:07→12:31)
[2022-08-05] MEDS: LIDOCAINE 5% (LIDODERM) PATCH TD SCH (09:07)
[2022-08-05] MEDS: DICLOFENAC EPOLAMINE 1.3% PATCH TOP SCH (09:08)
[2022-08-05] MEDS: buPROPion **XL** TABLET 150MG (WELLBUTRIN XL) PO SCH (09:08)
[2022-08-05] MEDS: ASPIRIN 81MG ENTERIC TABLET PO SCH (09:08)
[2022-08-05] MEDS: FERROUS SULFATE 325MG TAB PO SCH (09:09)
[2022-08-05] MEDS: TAMSULOSIN 0.4 MG CAP PO SCH (09:09)
[2022-08-05] MEDS: AMIODARONE 200 MG TAB (PACERONE) PO SCH (09:09)
[2022-08-05] MEDS: APIXABAN 5 MG TAB (ELIQUIS) PO SCH (09:09)
[2022-08-05] MEDS: ESCITALOPRAM OXALATE 10 MG TAB (LEXAPRO) PO SCH (09:09)
[2022-08-05] MEDS: DAPAGLIFLOZIN PROPANEDIOL 10MG TABLET (FARXIGA) PO SCH (09:09)
[2022-08-05] MEDS: FUROSEMIDE 20 MG TAB PO SCH (09:09)
[2022-08-05] MEDS: SPIRONOLACTONE 12.5MG PER 1/2 TABLET PO SCH (09:17)
[2022-08-05 12:00] VITALS: BP 146/64
[2022-08-05 12:34] VITALS: BP 146/64
[2022-08-05] MEDS: oxyCODONE 5MG TAB PO PRN (12:34)
== END 2022-08-05 13:05 | DRG 308 ==
LOC: M ED 03:23 → M ED INP 05:50 → ENRESERV 08:14 → M MSPAV 09:20
PROVIDERS: ADMIT Family Medicine; ATTEND Internal Medicine Nephrology
PROC: 0QS606Z Reposition Right Upper Femur with Intramedullary Internal Fixation Device, Open Approach (ICD-10-PCS; principal; 2022-07-29 11:30)
DX: S72.141A Displaced intertrochanteric fracture of right femur, initial encounter for closed fracture (principal); I47.20 Ventricular tachycardia, unspecified; I11.0 Hypertensive heart disease with heart failure; I25.5 Ischemic cardiomyopathy; I50.22 Chronic systolic (congestive) heart failure; F03.90 Unspecified dementia, unspecified severity, without behavioral disturbance, psychotic disturbance, mood disturbance, and anxiety; I25.10 Atherosclerotic heart disease of native coronary artery without angina pectoris; I69.322 Dysarthria following cerebral infarction; F32.A Depression, unspecified; I48.20 Chronic atrial fibrillation, unspecified; E11.9 Type 2 diabetes mellitus without complications; F41.9 Anxiety disorder, unspecified; W18.09XA Striking against other object with subsequent fall, initial encounter; Y92.59 Other trade areas as the place of occurrence of the external cause; D62 Acute posthemorrhagic anemia; Y93.89 Activity, other specified; Y99.8 Other external cause status; E87.6 Hypokalemia; I25.2 Old myocardial infarction; I69.392 Facial weakness following cerebral infarction; Z98.84 Bariatric surgery status; Z95.1 Presence of aortocoronary bypass graft; Z95.828 Presence of other vascular implants and grafts; Z79.01 Long term (current) use of anticoagulants; Z79.82 Long term (current) use of aspirin; Z79.899 Other long term (current) drug therapy; Z88.2 Allergy status to sulfonamides; Z95.810 Presence of automatic (implantable) cardiac defibrillator

== ENCOUNTER 2022-08-09 00:28 | Inpatient (IN) | payer BC, MEDICARE ==
[~2022-08-09] VITALS: Ht 177.8 cm; Wt 71.0 kg
[~2022-08-09 00:28] MED LIST: AMIO200T49 PO; ASPI81TA26 PO; ATOR1TAB21 PO; BUPR150T12 PO; CARV6.25 PO; DICL1PAT6 TOP; ELIQ5TAB PO; FARX1TAB3 PO; FERR1TAB8 PO; FURO20TA2 PO; LEXA1TAB PO; LIDO5TD TD; MAGN400T2 PO; METF500T13 PO; MIRA1POW3 PO; OXYC-517 PO; SPIR-10 PO; TAMS1CAP17 PO; THERTAB52 PO; VITA100054 PO; VITA30005 SL
[2022-08-09 04:00] VITALS: BP 132/63
[2022-08-09] MEDS ORDERED: DEXTROSE 50% 50ML SYRINGE IV PRN (04:10)
[2022-08-09] MEDS ORDERED: GLUCAGON INJ 1MG VIAL SC PRN (04:10)
[2022-08-09] MEDS ORDERED: SODIUM CHLORIDE 0.9% 1000ML IV SCH (04:10)
[2022-08-09] MEDS ORDERED: GLUCOSE 4GM CHEW TABLET PO PRN (04:10)
[2022-08-09 04:41] LABS: HEMATOCRIT 32.9 % (42.0-52.0); HEMOGLOBIN 10.5 g/dl (13.5-17.5); MEAN CORPUSCULAR HEMOGLOBIN 33.3 pg (27.0-33.0); MEAN CORPUSCULAR HGB CONC 31.9 g/dl (32.0-36.5); MEAN CORPUSCULAR VOLUME 104.4 fl (80.0-96.0); PLATELET COUNT, AUTOMATED 314 10^3/uL (150-450); RED BLOOD COUNT 3.15 10^6/uL (4.30-6.10); WHITE BLOOD COUNT 18.4 10^3/uL (4.0-10.0)
[2022-08-09] MEDS: HYDROMORPHONE HCL 0.5 MG/ 0.5 ML SYRINGE IV PRN ×2 (05:02→09:17)
[2022-08-09 05:11] LABS: BLOOD UREA NITROGEN 35 MG/DL (9-23); CARBON DIOXIDE LEVEL 31 MMOL/L (20-31); CHLORIDE LEVEL 98 MMOL/L (98-107); CREATININE FOR GFR 0.95 MG/DL (0.70-1.30); GLOMERULAR FILTRATION RATE > 60.0 (>42); GLUCOSE, FASTING 276 MG/DL (74-106); POTASSIUM SERUM 4.8 MMOL/L (3.5-5.1); SODIUM LEVEL 133 MMOL/L (136-145)
[2022-08-09] MEDS: cefTRIAXone SOD 1 GM in D5W MINI-BAG PLUS 50 ML IV SCH (05:24)
[2022-08-09] MEDS: INSULIN LISPRO (NovoLOG) PER UNIT SC SCH ×3 (06:05→18:08)
[2022-08-09 07:00] VITALS: BP 127/57
[2022-08-09 08:00] VITALS: BP 136/63
[2022-08-09] MEDS ORDERED: NS 1,000 ML IV SCH (08:00)
[2022-08-09 12:30] VITALS: BP 127/58
[2022-08-09] MEDS: PERCOCET 5MG/325MG TAB PO PRN ×2 (15:20→19:43)
[2022-08-09 16:00] VITALS: BP 130/57
[2022-08-09] MEDS ORDERED: ACET-897 PO (17:08)
[2022-08-09] MEDS ORDERED: OXYC-517 PO ×2 (17:08)
[2022-08-09] MEDS ORDERED: BISA10SU20 PR (17:08)
[2022-08-09] MEDS ORDERED: LIDO1ADH10 TOP (17:08)
[2022-08-09] MEDS ORDERED: CALM1OIN TOP (17:08)
[2022-08-09] MEDS ORDERED: MAGN200T10 PO (17:08)
[2022-08-09] MEDS ORDERED: POLY510P14 PO (17:08)
[2022-08-09] MEDS ORDERED: METO25TA4 PO (17:08)
[2022-08-09] MEDS ORDERED: MILKSUS3 PO (17:08)
[2022-08-09] MEDS ORDERED: HOME MED LIST COMPLETE! XX SCH (17:15)
[2022-08-09 20:00] VITALS: BP 156/69
[2022-08-10] VITALS (7 sets, daily range): BP systolic 121–164; BP diastolic 56–72
[2022-08-10] MEDS: INSULIN LISPRO (NovoLOG) PER UNIT SC SCH ×5 (00:22→22:03)
[2022-08-10 04:45] LABS: HEMOGLOBIN 9.7 g/dl (13.5-17.5); MEAN CORPUSCULAR HEMOGLOBIN 32.9 pg (27.0-33.0); MEAN CORPUSCULAR HGB CONC 31.3 g/dl (32.0-36.5); MEAN CORPUSCULAR VOLUME 105.1 fl (80.0-96.0); PLATELET COUNT, AUTOMATED 316 10^3/uL (150-450); RED BLOOD COUNT 2.95 10^6/uL (4.30-6.10); WHITE BLOOD COUNT 12.7 10^3/uL (4.0-10.0)
[2022-08-10 05:09] LABS: BLOOD UREA NITROGEN 35 MG/DL (9-23); CALCIUM LEVEL 8.1 MG/DL (8.3-10.6); CARBON DIOXIDE LEVEL 30 MMOL/L (20-31); CHLORIDE LEVEL 99 MMOL/L (98-107); CREATININE FOR GFR 0.85 MG/DL (0.70-1.30); GLOMERULAR FILTRATION RATE > 60.0 (>42); GLUCOSE, FASTING 209 MG/DL (74-106); POTASSIUM SERUM 4.6 MMOL/L (3.5-5.1); SODIUM LEVEL 136 MMOL/L (136-145)
[2022-08-10] MEDS: PERCOCET 5MG/325MG TAB PO PRN ×3 (05:23→23:00)
[2022-08-10] MEDS: cefTRIAXone SOD 1 GM in D5W MINI-BAG PLUS 50 ML IV SCH (05:27)
[2022-08-10] MEDS: METOPROLOL TART 25 MG TABLET PO SCH ×2 (09:27→22:02)
[2022-08-10] MEDS: ASPIRIN 81MG ENTERIC TABLET PO SCH (09:27)
[2022-08-10] MEDS: TAMSULOSIN 0.4 MG CAP PO SCH (09:27)
[2022-08-10] MEDS: ESCITALOPRAM OXALATE 10 MG TAB (LEXAPRO) PO SCH (09:27)
[2022-08-10] MEDS: FERROUS SULFATE 325MG TAB PO SCH (09:27)
[2022-08-10] MEDS: ATORVASTATIN 20 MG TAB PO SCH (09:28)
[2022-08-10] MEDS: AMIODARONE 200 MG TAB (PACERONE) PO SCH (09:28)
[2022-08-10] MEDS: APIXABAN 5 MG TAB (ELIQUIS) PO SCH ×2 (09:28→22:03)
[2022-08-10] MEDS: buPROPion **XL** TABLET 150MG (WELLBUTRIN XL) PO SCH (09:29)
[2022-08-11] MEDS: LIDOCAINE 5% (LIDODERM) PATCH TD SCH ×2 (01:49→21:59)
[2022-08-11] MEDS: cefTRIAXone SOD 1 GM in D5W MINI-BAG PLUS 50 ML IV SCH (05:12)
[2022-08-11] MEDS: PERCOCET 5MG/325MG TAB PO PRN ×3 (05:12→18:05)
[2022-08-11 06:00] VITALS: BP 146/64
[2022-08-11 06:06] LABS: HEMATOCRIT 30.3 % (42.0-52.0); HEMOGLOBIN 9.7 g/dl (13.5-17.5); MEAN CORPUSCULAR HEMOGLOBIN 33.3 pg (27.0-33.0); MEAN CORPUSCULAR VOLUME 104.1 fl (80.0-96.0); PLATELET COUNT, AUTOMATED 315 10^3/uL (150-450); RED BLOOD COUNT 2.91 10^6/uL (4.30-6.10); WHITE BLOOD COUNT 5.5 10^3/uL (4.0-10.0)
[2022-08-11 06:42] LABS: BLOOD UREA NITROGEN 32 MG/DL (9-23); CALCIUM LEVEL 8.2 MG/DL (8.3-10.6); CARBON DIOXIDE LEVEL 30 MMOL/L (20-31); CHLORIDE LEVEL 98 MMOL/L (98-107); CREATININE FOR GFR 0.79 MG/DL (0.70-1.30); GLOMERULAR FILTRATION RATE > 60.0 (>42); GLUCOSE, FASTING 284 MG/DL (74-106); POTASSIUM SERUM 4.6 MMOL/L (3.5-5.1); SODIUM LEVEL 133 MMOL/L (136-145)
[2022-08-11] MEDS: APIXABAN 5 MG TAB (ELIQUIS) PO SCH ×2 (09:32→21:58)
[2022-08-11] MEDS: TAMSULOSIN 0.4 MG CAP PO SCH (09:32)
[2022-08-11] MEDS: FUROSEMIDE 20 MG TAB PO SCH (09:32)
[2022-08-11] MEDS: FERROUS SULFATE 325MG TAB PO SCH (09:32)
[2022-08-11] MEDS: AMIODARONE 200 MG TAB (PACERONE) PO SCH (09:32)
[2022-08-11] MEDS: METOPROLOL TART 25 MG TABLET PO SCH ×2 (09:32→21:59)
[2022-08-11] MEDS: ATORVASTATIN 20 MG TAB PO SCH (09:32)
[2022-08-11] MEDS: INSULIN LISPRO (NovoLOG) PER UNIT SC SCH ×4 (09:32→21:00)
[2022-08-11] MEDS: ESCITALOPRAM OXALATE 10 MG TAB (LEXAPRO) PO SCH (09:33)
[2022-08-11] MEDS: buPROPion **XL** TABLET 150MG (WELLBUTRIN XL) PO SCH (09:33)
[2022-08-11] MEDS: ASPIRIN 81MG ENTERIC TABLET PO SCH (09:33)
[2022-08-11 14:00] VITALS: BP 130/63
[2022-08-11] MEDS: CEFDINIR 300 MG CAP (OMNICEF) PO SCH (21:58)
[2022-08-12] MEDS: PERCOCET 5MG/325MG TAB PO PRN ×4 (00:19→20:14)
[2022-08-12 06:28] LABS: HEMATOCRIT 30.6 % (42.0-52.0); HEMOGLOBIN 9.6 g/dl (13.5-17.5); MEAN CORPUSCULAR HEMOGLOBIN 32.5 pg (27.0-33.0); MEAN CORPUSCULAR HGB CONC 31.4 g/dl (32.0-36.5); MEAN CORPUSCULAR VOLUME 103.7 fl (80.0-96.0); PLATELET COUNT, AUTOMATED 332 10^3/uL (150-450); RED BLOOD COUNT 2.95 10^6/uL (4.30-6.10)
[2022-08-12 06:47] VITALS: BP 146/67
[2022-08-12 06:56] LABS: BLOOD UREA NITROGEN 28 MG/DL (9-23); CARBON DIOXIDE LEVEL 30 MMOL/L (20-31); CHLORIDE LEVEL 102 MMOL/L (98-107); CREATININE FOR GFR 0.73 MG/DL (0.70-1.30); GLOMERULAR FILTRATION RATE > 60.0 (>42); GLUCOSE, FASTING 233 MG/DL (74-106); POTASSIUM SERUM 4.5 MMOL/L (3.5-5.1); SODIUM LEVEL 136 MMOL/L (136-145)
[2022-08-12] MEDS: INSULIN LISPRO (NovoLOG) PER UNIT SC SCH ×4 (07:30→21:00)
[2022-08-12] MEDS: buPROPion **XL** TABLET 150MG (WELLBUTRIN XL) PO SCH (11:16)
[2022-08-12] MEDS: ASPIRIN 81MG ENTERIC TABLET PO SCH (11:16)
[2022-08-12] MEDS: FUROSEMIDE 20 MG TAB PO SCH (11:17)
[2022-08-12] MEDS: TAMSULOSIN 0.4 MG CAP PO SCH (11:17)
[2022-08-12] MEDS: FERROUS SULFATE 325MG TAB PO SCH (11:18)
[2022-08-12] MEDS: METOPROLOL TART 25 MG TABLET PO SCH ×2 (11:18→21:00)
[2022-08-12] MEDS: ESCITALOPRAM OXALATE 10 MG TAB (LEXAPRO) PO SCH (11:19)
[2022-08-12] MEDS: AMIODARONE 200 MG TAB (PACERONE) PO SCH (11:19)
[2022-08-12] MEDS: ATORVASTATIN 20 MG TAB PO SCH (11:19)
[2022-08-12] MEDS: APIXABAN 5 MG TAB (ELIQUIS) PO SCH ×2 (11:19→20:12)
[2022-08-12] MEDS: CEFDINIR 300 MG CAP (OMNICEF) PO SCH ×2 (11:48→20:12)
[2022-08-12 13:09] VITALS: BP 122/57
[2022-08-12] MEDS: LIDOCAINE 5% (LIDODERM) PATCH TD SCH (20:12)
[2022-08-12 21:00] VITALS: BP 120/57
[2022-08-13] MEDS: PERCOCET 5MG/325MG TAB PO PRN ×2 (02:46→09:18)
[2022-08-13 06:00] VITALS: BP 166/65
[2022-08-13 08:44] VITALS: BP 138/58
[2022-08-13] MEDS: METOPROLOL TART 25 MG TABLET PO SCH (09:00)
[2022-08-13] MEDS: INSULIN LISPRO (NovoLOG) PER UNIT SC SCH (09:16)
[2022-08-13] MEDS: AMIODARONE 200 MG TAB (PACERONE) PO SCH (09:16)
[2022-08-13] MEDS: ESCITALOPRAM OXALATE 10 MG TAB (LEXAPRO) PO SCH (09:16)
[2022-08-13] MEDS: ATORVASTATIN 20 MG TAB PO SCH (09:16)
[2022-08-13] MEDS: ASPIRIN 81MG ENTERIC TABLET PO SCH (09:18)
[2022-08-13] MEDS: FUROSEMIDE 20 MG TAB PO SCH (09:18)
[2022-08-13] MEDS: APIXABAN 5 MG TAB (ELIQUIS) PO SCH (09:18)
[2022-08-13] MEDS: CEFDINIR 300 MG CAP (OMNICEF) PO SCH (09:18)
[2022-08-13] MEDS: FERROUS SULFATE 325MG TAB PO SCH (09:18)
[2022-08-13] MEDS: buPROPion **XL** TABLET 150MG (WELLBUTRIN XL) PO SCH (09:18)
[2022-08-13] MEDS: TAMSULOSIN 0.4 MG CAP PO SCH (09:19)
== END 2022-08-13 12:34 | DRG 720 ==
LOC: UNDOADMIN 03:53 → M ICU 03:53 → M MSPAV 08-10 15:38
PROVIDERS: ADMIT Internal Medicine; ATTEND Internal Medicine
DX: A41.9 Sepsis, unspecified organism (principal); G93.41 Metabolic encephalopathy; I48.92 Unspecified atrial flutter; I50.22 Chronic systolic (congestive) heart failure; N39.0 Urinary tract infection, site not specified; E11.9 Type 2 diabetes mellitus without complications; F32.A Depression, unspecified; R65.20 Severe sepsis without septic shock; S72.141D Displaced intertrochanteric fracture of right femur, subsequent encounter for closed fracture with routine healing; Z79.01 Long term (current) use of anticoagulants; Z79.82 Long term (current) use of aspirin; Z79.84 Long term (current) use of oral hypoglycemic drugs; Z79.899 Other long term (current) drug therapy; Z98.84 Bariatric surgery status; Z88.2 Allergy status to sulfonamides; Z95.0 Presence of cardiac pacemaker; Z86.73 Personal history of transient ischemic attack (TIA), and cerebral infarction without residual deficits